=== PATIENT | female | born 1980 | race Caucasian/White ===

== ENCOUNTER 2023-11-07 07:58 | Emergency (ER) | payer OTHER, SELFPAY ==
[2023-11-07 07:59] VITALS: BP 147/84
[2023-11-07 08:15] VITALS: BMI 26.7
--- NOTE | 2023-11-07 08:28 | ED.GENMED ---
History of Present Illness
General
Chief Complaint: Anxiety
Source: patient
Exam Limitations: none
Time Seen by Provider: 11/07/23 08:15
Travel History
Have you had any contact with someone who has COVID-19?: No
Do you have any symptoms of coronavirus? Fever > 100 degrees, chills, cough, shortness of breath, sore throat, loss of taste or smell, muscle aches, or headache?: No
History of Present Illness
History of Present Illness:
See MDM
Past History
Past History
ED Past Medical History: GERD, Psychiatric and Other (Anemia)
ED Past Surgical History: and Urological
Social History
Tobacco: Non-smoker
Alcohol: None
Drug: None
Personal:
Living: with family
Phy Exam
Physical Exam
Physical Exam:
See MDM
Course
Orders/Labs/Results
Orders:
Orders
11/07/23 08:27
Crisis Consult Urgent
Reason for Consult: Depression
Lorazepam [Ativan] 1 mg IV NOW STA
Test Result ONCE
11/07/23 08:37
Complete Blood Count/With Diff Urgent
Comprehensive Metabolic Panel Urgent
HCG, Serum Qualitative Screen Urgent
Abnormal Lab Results
11/07/23
08:37
Hgb 10.0 L g/dL
(12.0-16.0)
Hct 32.7 L %
(37.0-47.0)
MCV 77.5 L fL
(81.0-99.0)
MCH 23.7 L pg
(27.0-31.0)
MCHC 30.6 L g/dL
(33.0-37.0)
RDW 14.8 H %
(11.5-14.5)
MPV 10.6 H fL
(7.4-10.4)
Absolute Lymphs (auto) 0.8 L 10^3/uL
(1.2-3.4)
Lymphocytes % 14.4 L %
(20.5-51.1)
11/07/23 08:37
11/07/23 08:37
Vital Signs
Initial and Last Documented VS:
Initial Vital Signs
Temp Pulse Resp BP Pulse Ox
98.9 F 96 16 147/84 100
11/07/23 07:59 11/07/23 07:59 11/07/23 07:59 11/07/23 07:59 11/07/23 07:59
Last Documented Vital Signs
Temp Pulse Resp BP Pulse Ox
98.9 F 82 16 130/93 98
11/07/23 07:59 11/07/23 11:00 11/07/23 11:00 11/07/23 11:00 11/07/23 11:00
MDM/Problems Addressed
Differential Diagnosis Includes:
HPI and MDM Narrative:
43-year-old female presenting with increased anxiety. Patient states she is going through a divorce and she recently moved out of the house. Patient is tearful on evaluation. She denies suicidal or homicidal thoughts. She used to be on
sertraline but did not like the side effects. She states she will be able to follow-up with her therapist and her primary care doctor.
On exam, she is tearful. We discussed Ativan and having her restart her sertraline at home and discussing her symptoms with her therapist and her PCP. Patient is not interested in inpatient psychiatric stay. She does not appear to be a threat to
herself. She states she needs to stay alive because she has a 12-year-old child to take care of. Will have crisis evaluate
Physical exam
General: Tearful but non-toxic
HEENT: protecting airway
Neck: appears supple
CV: No evidence of cyanosis
Resp: No accessory muscle use
Abd: Non-distended
Extremities: No deformities
Neuro: alert
Psych: Normal affect
Skin: Intact
Problems Addressed including Acute and Chronic Conditions affecting care:
1. Anxiety
Acuity: acute
Prognosis: stable
Details: Likely in the setting of recent life changes. Will give Ativan and have crisis evaluate
Updates
On multiple reexaminations, patient feeling much better. Crisis did evaluate and offered outpatient resources. Patient happy with plan
I discussed with patient her mild anemia and concern that she should restart her iron supplements
Differential Diagnosis (but not limited to): Anxiety, anemia
Testing considered: UDS
Drug therapy (if applicable): OTC meds, please see d/c instruction regarding Rx drugs
Amount and/or Complexity of Data Reviewed
Clinical info obtained from: Patient
External data reviewed: N/A
Labs I independently reviewed (but not limited to): Mild anemia
Radiology: N/A
Pulse Ox: not hypoxic
EKG independently reviewed: N/A
Case Worker: N/A
Critical Care: N/A
Risk of Complication:
Social Determinants of health: Good social support
Discussed with other providers: N/A
Escalation of Care includes Admit/Obs: After being observed in the Emergency Department, pt stable for discharge.
Occasional wrong word or 'sound a like' substitutions may have occurred due to the inherent limitations of voice recognition software. Read the chart carefully and recognize, using context, where substitutions have occurred.
*Critical Care Note
Total Time (30-74mins, 75-104mins- exclusive of procedures): Not Applicable
ED Attending Note
-
Portions of this chart may have been created with voice recognition software.� Occasional wrong word or��sound alike� substitutions may have occurred due to the inherent limitations of voice recognition software.
Discharge Plan
Departure
Patient Disposition: Home (Routine Discharge)
Date of Disposition: 11/07/23
Time of Disposition: 12:00
Patient with high blood pressure during this ER visit?: No
Discharge Problem:
Anxiety
Instructions: Anxiety, Adult (DC)
Prescriptions:
New
hydroxyzine HCl 25 mg tablet
25 mg PO BID PRN (Reason: anxiety ) Qty: 20 0RF
lorazepam [Ativan] 1 mg tablet
1 mg PO BID PRN (Reason: Anxiety) Qty: 14 0RF
No Action
Marijuana-Patient's Own Medical Cannabis Puff
1 dose inhalation HS PRN (Reason: anxiety/insomnia)
Patient Comments:
smokes 3 'bowls' usually at night
Referrals:
Lena Harkins CRNP [Family Provider] -
Kirby Jung MD [Active] -
Activity Restrictions/Additional Instructions:
Please return for any worsening symptoms.
You may return at any time if you have further concerns.
Please follow up with your doctor at the first available appointment, preferably this week.
Please make a call to see the psychiatrist.
Please use the hydroxyzine as needed for anxiety. If symptoms persist, you can take 1/2 tablet of the Ativan. Please restart your Sertraline.
Thank you for choosing [facility].
Interventions
Interventions:
*Risk Screen - Suicide Last Done: 11/07/23 07:59
*General Assessment Last Done: 11/07/23 07:59
*Neglect/Abuse Screening Last Done: 11/07/23 07:59
*ED COVID-19 Vaccine History Last Done: 11/07/23 08:15
ED-Psychological Assessment Last Done: 11/07/23 08:15
Discharge Date and Time
Print Language: GUATEMALAN
[2023-11-07] MEDS: ATIVAN 1 MG IV (08:44)
[2023-11-07 08:49] LABS: % Basophils 1.1 % (0-2); % Eosinophils 2.8 % (0-6); % Immature Granulocytes 0.4 % (0-0.5); % Lymphocytes 14.4 % (20.5-51.1); % Monocytes 7.5 % (1.7-9.3); % Neutrophils 73.8 % (42.2-75.2); Absolute Basophils 0.1 10^3/uL (0-0.2); Absolute Eosinophils 0.2 10^3/uL (0-0.7); Absolute Lymphocytes 0.8 10^3/uL (1.2-3.4); Absolute Monocytes 0.4 10^3/uL (0.1-0.6); Absolute Neutrophils 3.9 10^3/uL (1.4-6.5); Hematocrit 32.7 % (37.0-47.0); Mean Corp Hgb Conc. 30.6 g/dL (33.0-37.0); Mean Corpuscular Hgb 23.7 pg (27.0-31.0); Mean Corpuscular Volume 77.5 fL (81.0-99.0); Mean Platelet Volume 10.6 fL (7.4-10.4); Nucleated Red Blood Cells % 0 %; Platelet Count 254 10^3/uL (130-400); Red Blood Cell Count 4.22 10^6/uL (4.20-5.40); Red Cell Dist. Width 14.8 % (11.5-14.5); White Blood Cell Count 5.3 10^3/uL (4.8-10.8)
[2023-11-07 09:00] VITALS: BP 134/90
[2023-11-07 09:03] LABS: ALT (SGPT) 15 U/L (0-35); AST (SGOT) 20 U/L (14-36); Albumin 4.5 g/dl (3.5-5.0); Alkaline Phosphatase 80 U/L (38-126); Blood Urea Nitrogen 8 mg/dl (7-17); Calcium 9.8 mg/dl (8.4-10.2); Carbon Dioxide 25 mmol/L (22-30); Chloride 107 mmol/L (98-107); Estimated Creatinine Clearance 86 ml/min; Glucose 82 mg/dl (70-99); Sodium 136 mmol/L (135-145); Total Bilirubin 0.4 mg/dl (0.2-1.3); Total Protein 6.8 g/dl (6.3-8.2); eGFR > 60.00
[2023-11-07 09:04] LABS: HCG, Serum Qualitative Screen Negative
[2023-11-07 11:00] VITALS: BP 130/93
== END 2023-11-07 13:03 | disposition home or self-care (01) ==
LOC: EMR 07:58
PROVIDERS: EMERGENCY PHYSICIAN Student in an Organized Health Care Education/Training Program; FAMILY PHYSICIAN Nurse Practitioner
DX: F41.9 Anxiety disorder, unspecified (principal); Z63.5 Disruption of family by separation and divorce; D64.9 Anemia, unspecified; K21.9 Gastro-esophageal reflux disease without esophagitis; Z91.018 Allergy to other foods
CPT/HCPCS: 99284; 96374; 80053; 84703; 85025

== ENCOUNTER → 2023-11-22 10:58 | Outpatient (REF) | payer OTHER, SELFPAY ==
[2023-11-22 12:45] LABS: Urine Albumin Negative (Neg - Trace); Urine Bilirubin 1+ (Negative); Urine Character Clear (Clear); Urine Color Yellow; Urine Glucose Negative (Negative); Urine Ketone Negative (Negative); Urine Leukocyte Trace (Negative); Urine Nitrite Negative (Negative); Urine Occult Blood Negative (Negative); Urine Urobilinogen 2+ (Neg - 1+)
[2023-11-22 12:55] LABS: Urine Bacteria Few (Negative); Urine Mucus Few; Urine Red Blood Cell 0-2 /HPF (0-2); Urine Squamous Cell 26-30 /LPF (Few); Urine White Cell 0-2 /HPF (0-5)
== END ==
LOC: REG 10:58
PROVIDERS: ATTENDING PHYSICIAN Specialist
DX: N20.0 Calculus of kidney (principal); N39.0 Urinary tract infection, site not specified
CPT/HCPCS: 74018; 81003; 81015; 87086

== ENCOUNTER 2023-11-23 08:01 | Emergency (ER) | payer OTHER, SELFPAY ==
[2023-11-23 08:06] VITALS: BP 153/93
[2023-11-23 08:32] VITALS: BMI 24.3
--- NOTE | 2023-11-23 08:46 | ED.GENMED ---
History of Present Illness
General
Chief Complaint: Urinary Symptoms
Source: patient
Exam Limitations: none
Time Seen by Provider: 11/23/23 08:40
Travel History
Have you had any contact with someone who has COVID-19?: No
Do you have any symptoms of coronavirus? Fever > 100 degrees, chills, cough, shortness of breath, sore throat, loss of taste or smell, muscle aches, or headache?: No
History of Present Illness
History of Present Illness:
43 year old female presents with urinary symptoms nausea vomiting and lower abdominal discomfort. She has a history of kidney stones. She has a history of infected kidney stones. She called the urology team yesterday and a did an outpatient x-ray
and took a urine culture. No fevers. She notes chills however. She cannot keep anything down.
Past History
Past History
ED Past Medical History: GERD, Psychiatric and Other (Anemia)
ED Past Surgical History: and Urological
Social History
Tobacco: Non-smoker
Alcohol: None
Drug: None
Personal:
Living: with family
Phy Exam
Physical Exam
Physical Exam:
General: Well-appearing female no acute respiratory distress HEENT: Normocephalic atraumatic neck is supple
Heart: Regular rate and rhythm no murmurs
Lungs: Clear no wheeze or rales
Abdomen soft mildly tender to the suprapubic and left lower quadrants. No guarding or rebound normal bowel sounds no significant costovertebral angle tenderness
Extremities: No cyanosis
Course
Orders/Labs/Results
Orders:
Orders
11/23/23 08:36
CMP [Comprehensive Metabolic Panel] Urgent
Complete Blood Count/With Diff Urgent
HCG, Serum Qualitative Screen Urgent
Comment: ADD ON
Urinalysis Reflex To Culture Urgent
Date Specimen was Collected: 11/23/23
Time Specimen was Collected: 08:35
11/23/23 08:47
0.9% Sodium Chloride 1000 ml [Nss] 1,000 ml IV BOLUS
Ondansetron Injectable [Zofran] 4 mg IV NOW STA
11/23/23 08:48
Add On- LAB Urgent
Tests Added?: serum test
11/23/23 10:22
Crisis Consult Urgent
Reason for Consult: not coping with current change of life event
Abnormal Lab Results
11/23/23
08:36
Hgb 10.2 L g/dL
(12.0-16.0)
Hct 32.3 L %
(37.0-47.0)
MCV 74.3 L fL
(81.0-99.0)
MCH 23.4 L pg
(27.0-31.0)
MCHC 31.6 L g/dL
(33.0-37.0)
RDW 14.6 H %
(11.5-14.5)
Absolute Lymphs (auto) 0.6 L 10^3/uL
(1.2-3.4)
Neutrophils % 78.6 H %
(42.2-75.2)
Lymphocytes % 12.9 L %
(20.5-51.1)
BUN 6 L mg/dl
(7-17)
Urine Ketones Trace A
(Negative)
11/23/23 08:36
11/23/23 08:36
Vital Signs
Initial and Last Documented VS:
Initial Vital Signs
Temp Pulse Resp BP Pulse Ox
98.1 F 83 18 153/93 100
11/23/23 08:06 11/23/23 08:06 11/23/23 08:06 11/23/23 08:06 11/23/23 08:06
Last Documented Vital Signs
Temp Pulse Resp BP Pulse Ox
98.3 F 83 18 153/93 100
11/23/23 08:56 11/23/23 08:06 11/23/23 08:06 11/23/23 08:06 11/23/23 08:06
MDM/Problems Addressed
Differential Diagnosis Includes:
Urinary symptoms. Question UTI versus pyelonephritis versus kidney stone. Also nausea and vomiting question viral illness otherwise. Will check into electrolyte abnormality with labs. Administer fluids and Zofran.
I reviewed outpatient x-ray performed yesterday which shows no radiopaque calculus along the expected course of urinary tract bilaterally
Patient has no other medical conditions affecting today's care other than history of kidney stones
Will consider imaging pending labs
*Critical Care Note
Total Time (30-74mins, 75-104mins- exclusive of procedures): Not Applicable
Update Note
Update Note:
Patient reexamined. Labs reviewed. Abdominal exam benign. Urine negative. X-ray from yesterday demonstrates no calculus. She did admit to having overwhelming anxiety secondary to her divorce she has recently gone through. Crisis team involved
resources given. Now with parents. Stable for discharge.
ED Attending Note
-
Portions of this chart may have been created with voice recognition software.� Occasional wrong word or��sound alike� substitutions may have occurred due to the inherent limitations of voice recognition software.
Discharge Plan
Departure
Patient Disposition: Home (Routine Discharge)
Date of Disposition: 11/23/23
Time of Disposition: 12:29
Patient with high blood pressure during this ER visit?: No
Discharge Problem:
Nausea & vomiting
Prescriptions:
No Action
Marijuana-Patient's Own Medical Cannabis Puff
1 dose inhalation HS PRN (Reason: anxiety/insomnia)
Patient Comments:
smokes 3 'bowls' usually at night
hydroxyzine HCl 25 mg tablet
25 mg PO BID PRN (Reason: anxiety ) Qty: 20 0RF
lorazepam [Ativan] 1 mg tablet
1 mg PO BID PRN (Reason: Anxiety) Qty: 14 0RF
Referrals:
Lena Harkins CRNP [Family Provider] -
Activity Restrictions/Additional Instructions:
Please continue to follow-up with family doctor and therapist as planned. Return if worse otherwise
Interventions
Interventions:
*Risk Screen - Suicide Last Done: 11/23/23 08:06
*General Assessment Last Done: 11/23/23 08:32
*Neglect/Abuse Screening Last Done: 11/23/23 08:06
ED- Fall Risk Assessment Last Done: 11/23/23 08:32
*ED COVID-19 Vaccine History Last Done: 11/23/23 08:06
ED-Female Genitourinary Assessment Last Done: 11/23/23 08:32
Discharge Date and Time
Print Language: LATVIAN
[2023-11-23] MEDS: ZOFRAN 4 MG IV (08:53)
[2023-11-23] MEDS: NSS 1000 IV (08:53)
[2023-11-23 09:03] LABS: Urine Albumin Negative (Neg - Trace); Urine Bilirubin Negative (Negative); Urine Character Clear (Clear); Urine Color Yellow; Urine Glucose Negative (Negative); Urine Ketone Trace (Negative); Urine Leukocyte Negative (Negative); Urine Nitrite Negative (Negative); Urine Occult Blood Negative (Negative); Urine Urobilinogen Negative (Neg - 1+)
[2023-11-23 09:04] LABS: % Basophils 0.8 % (0-2); % Immature Granulocytes 0.2 % (0-0.5); % Lymphocytes 12.9 % (20.5-51.1); % Monocytes 6.5 % (1.7-9.3); % Neutrophils 78.6 % (42.2-75.2); Absolute Eosinophils 0.1 10^3/uL (0-0.7); Absolute Lymphocytes 0.6 10^3/uL (1.2-3.4); Absolute Monocytes 0.3 10^3/uL (0.1-0.6); Absolute Neutrophils 3.8 10^3/uL (1.4-6.5); Hematocrit 32.3 % (37.0-47.0); Hemoglobin 10.2 g/dL (12.0-16.0); Mean Corp Hgb Conc. 31.6 g/dL (33.0-37.0); Mean Corpuscular Hgb 23.4 pg (27.0-31.0); Mean Corpuscular Volume 74.3 fL (81.0-99.0); Mean Platelet Volume 10.2 fL (7.4-10.4); Nucleated Red Blood Cells % 0 %; Platelet Count 292 10^3/uL (130-400); Red Blood Cell Count 4.35 10^6/uL (4.20-5.40); Red Cell Dist. Width 14.6 % (11.5-14.5); White Blood Cell Count 4.8 10^3/uL (4.8-10.8)
[2023-11-23 09:10] LABS: HCG, Serum Qualitative Screen Negative
[2023-11-23 09:12] LABS: ALT (SGPT) 14 U/L (0-35); AST (SGOT) 20 U/L (14-36); Albumin 4.2 g/dl (3.5-5.0); Alkaline Phosphatase 94 U/L (38-126); Blood Urea Nitrogen 6 mg/dl (7-17); Calcium 9.5 mg/dl (8.4-10.2); Carbon Dioxide 22 mmol/L (22-30); Chloride 106 mmol/L (98-107); Estimated Creatinine Clearance 87 ml/min; Glucose 96 mg/dl (70-99); Potassium 3.8 mmol/L (3.5-5.1); Sodium 137 mmol/L (135-145); Total Bilirubin 0.9 mg/dl (0.2-1.3); Total Protein 6.6 g/dl (6.3-8.2); eGFR > 60.00
[2023-11-23 12:40] VITALS: BP 144/79
== END 2023-11-23 12:40 | disposition home or self-care (01) ==
LOC: EMR 08:01
PROVIDERS: EMERGENCY PHYSICIAN Emergency Medicine; FAMILY PHYSICIAN Nurse Practitioner
DX: R11.2 Nausea with vomiting, unspecified (principal); K21.9 Gastro-esophageal reflux disease without esophagitis; D64.9 Anemia, unspecified; Z87.442 Personal history of urinary calculi
CPT/HCPCS: 99283; 96374; 96361; 80053; 81003; 84703; 85025

== ENCOUNTER 2024-07-04 10:27 | Emergency (ER) | payer BC, SELFPAY ==
[2024-07-04] VITALS (15 sets, daily range): BP systolic 113–148; BP diastolic 69–109; BMI 23.4
--- NOTE | 2024-07-04 11:38 | ED.GENMED ---
History of Present Illness
General
Chief Complaint: Dizziness
Time Seen by Provider: 07/04/24 11:27
History of Present Illness
History of Present Illness:
44-year-old female presents to the emergency department for evaluation of weakness, dizziness, and night sweats. Has felt gradually weaker over the past several months, reports a history of iron deficiency anemia. Had lost insurance recently,
notes that she typically took tranexamic acid during her menstrual cycles due to menorrhagia that was the presumed cause of her prior anemia, has not had this in several months. Also notes URI symptoms for the past 5 days with no fevers
Past History
Past History
ED Past Medical History: GERD, Psychiatric and Other (Anemia)
ED Past Surgical History: and Urological
Social History
Tobacco: Non-smoker
Alcohol: None
Drug: None
Personal:
Living: with family
Review of Systems
Review of Systems
Allergies reviewed?: Yes
All Other Systems: ROS reviewed and negative except as documented in HPI and ROS
Phy Exam
Physical Exam
Physical Exam:
GEN: Well appearing, NAD, WDWN
HEENT: Oral mucosa moist, no scleral icterus
Cardiac: Regular rate and rhythm, no murmurs
Lung: No respiratory distress, no tachypnea, lungs clear to auscultation bilaterally
MSK: No gross deformity or injuries
Skin: Good color, no pallor or jaundice, no rashes
Neuro: AO x3, moves all extremities freely
Psych: Calm, cooperative
Course
Orders/Labs/Results
Orders:
Orders
07/04/24 10:31
Electrocardiogram (*1) Urgent
Reason for Study: Shortness of Breath
EKG- Treatment ONCE
07/04/24 11:39
Type+Screen Urgent
Complete Blood Count/With Diff Urgent
Comprehensive Metabolic Panel Urgent
07/04/24 12:41
Blood Bank Products [* Blood Bank Products] Urgent
Blood Bank Products: *Packed RBC Leuko(PRBC's)
Quantity: 1
Transfuse Today: Yes
Reason: Anemia
Abnormal Lab Results
07/04/24
11:39
RBC 3.77 L 10^6/uL
(4.20-5.40)
Hgb 7.5 L g/dL
(12.0-16.0)
Hct 26.4 L %
(37.0-47.0)
MCV 70.0 L fL
(81.0-99.0)
MCH 19.9 L pg
(27.0-31.0)
MCHC 28.4 L g/dL
(33.0-37.0)
RDW 15.9 H %
(11.5-14.5)
Absolute Lymphs (auto) 1.0 L 10^3/uL
(1.2-3.4)
Neutrophils % 77.5 H %
(42.2-75.2)
Lymphocytes % 14.3 L %
(20.5-51.1)
Crossmatch IS Only See Detail
07/04/24 11:39
07/04/24 11:39
Vital Signs
Initial and Last Documented VS:
Initial Vital Signs
Temp Pulse Resp BP Pulse Ox
98.3 F 94 16 148/96 100
07/04/24 10:28 07/04/24 10:28 07/04/24 10:28 07/04/24 10:28 07/04/24 10:28
Last Documented Vital Signs
Temp Pulse Resp BP Pulse Ox
98.7 F 74 16 130/74 98
07/04/24 16:24 07/04/24 16:24 07/04/24 16:24 07/04/24 16:24 07/04/24 16:24
MDM/Problems Addressed
MDM/Problems Addressed:
Patient's anemia is most likely on the basis of her menorrhagia in the absence of her tranexamic acid use. She is given 1 unit of packed red blood cells, encouraged to follow-up with her diversional therapist for further outpatient iron infusions if
appropriate. Will start oral iron at this time and prescribe tranexamic acid for use during menstrual cycles.
*Critical Care Note
Total Time (30-74mins, 75-104mins- exclusive of procedures): Not Applicable
ED Attending Note
-
Portions of this chart may have been created with voice recognition software.� Occasional wrong word or��sound alike� substitutions may have occurred due to the inherent limitations of voice recognition software.
Discharge Plan
Departure
Patient Disposition: Home (Routine Discharge)
Date of Disposition: 07/04/24
Time of Disposition: 15:28
Patient with high blood pressure during this ER visit?: No
Discharge Problem:
Symptomatic anemia
Instructions: Anemia caused by low iron in adults - Discharge instructions
Prescriptions:
New
ferrous sulfate 325 mg (65 mg iron) tablet
325 mg PO BID Qty: 60 0RF
tranexamic acid 650 mg tablet
1,300 mg PO Q8H PRN (Reason: vaginal hemorrhage) 5 Days Qty: 30 2RF
No Action
Marijuana-Patient's Own Medical Cannabis Puff
1 dose inhalation HS PRN (Reason: anxiety/insomnia)
Patient Comments:
smokes 3 'bowls' usually at night
hydroxyzine HCl 25 mg tablet
25 mg PO BID PRN (Reason: anxiety ) Qty: 20 0RF
lorazepam [Ativan] 1 mg tablet
1 mg PO BID PRN (Reason: Anxiety) Qty: 14 0RF
Referrals:
Abelino Damon CRNP [Family Provider] -
Activity Restrictions/Additional Instructions:
Take oral iron supplements every day
Follow-up with your diversional therapist to discuss with you may need iron infusions
Follow-up for repeat blood count test within 1 week, this can be obtained by your primary physician or diversional therapist
Use the tranexamic acid during heavy menstrual periods as you have previously done
Interventions
Interventions:
*Risk Screen - Suicide Last Done: 07/04/24 10:31
*General Assessment Last Done: 07/04/24 11:37
*Neglect/Abuse Screening Last Done: 07/04/24 10:31
ED- Fall Risk Assessment Last Done: 07/04/24 11:37
*ED COVID-19 Vaccine History Last Done: 07/04/24 10:31
*Nursing Disposition Last Done: 07/04/24 16:25
ED- Neurological Assessment Last Done: 07/04/24 11:37
ED Swallowing Screen Last Done: 07/04/24 11:37
Discharge Date and Time
Discharge Date/Time: 07/04/24 16:25
Print Language: CHINESE
[2024-07-04 12:01] LABS: % Eosinophils 1.1 % (0-6); % Immature Granulocytes 0.4 % (0-0.5); % Lymphocytes 14.3 % (20.5-51.1); % Monocytes 5.7 % (1.7-9.3); % Neutrophils 77.5 % (42.2-75.2); Absolute Basophils 0.1 10^3/uL (0-0.2); Absolute Eosinophils 0.1 10^3/uL (0-0.7); Absolute Monocytes 0.4 10^3/uL (0.1-0.6); Absolute Neutrophils 5.6 10^3/uL (1.4-6.5); Hematocrit 26.4 % (37.0-47.0); Hemoglobin 7.5 g/dL (12.0-16.0); Mean Corp Hgb Conc. 28.4 g/dL (33.0-37.0); Mean Corpuscular Hgb 19.9 pg (27.0-31.0); Mean Platelet Volume 10.3 fL (7.4-10.4); Nucleated Red Blood Cells % 0 %; Platelet Count 255 10^3/uL (130-400); Red Blood Cell Count 3.77 10^6/uL (4.20-5.40); Red Cell Dist. Width 15.9 % (11.5-14.5); White Blood Cell Count 7.2 10^3/uL (4.8-10.8)
[2024-07-04 12:04] LABS: ALT (SGPT) 15 U/L (0-35); AST (SGOT) 23 U/L (14-36); Albumin 4.5 g/dl (3.5-5.0); Alkaline Phosphatase 66 U/L (38-126); Blood Urea Nitrogen 7 mg/dl (7-17); Calcium 9.3 mg/dl (8.4-10.2); Carbon Dioxide 25 mmol/L (22-30); Chloride 106 mmol/L (98-107); Estimated Creatinine Clearance 90 ml/min; Glucose 89 mg/dl (70-99); Potassium 3.9 mmol/L (3.5-5.1); Sodium 138 mmol/L (135-145); Total Bilirubin 0.4 mg/dl (0.2-1.3); Total Protein 6.7 g/dl (6.3-8.2); eGFR > 60.00
== END 2024-07-04 16:25 | disposition home or self-care (01) ==
LOC: EMR 10:27
PROVIDERS: Physician Assistant; EMERGENCY PHYSICIAN Student in an Organized Health Care Education/Training Program; FAMILY PHYSICIAN Nurse Practitioner Family
DX: D50.9 Iron deficiency anemia, unspecified (principal); K21.9 Gastro-esophageal reflux disease without esophagitis; Z59.71 Insufficient health insurance coverage
CPT/HCPCS: 36430; 99285; 80053; 85025; 86850; 86900; 86901; 86920; 93005; P9016